=== PATIENT | male | born 1965 | race Caucasian/White ===

== ENCOUNTER 2022-05-07 19:59 | Emergency (ER) | payer BC, SELFPAY ==
[2022-05-07 20:21] VITALS: BP 122/79; PULSE 80; RESP 18; TEMP 36.7; O2SAT 94; BMI 33.9
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
--- NOTE | 2022-05-07 21:17 | ED_ITS ---
HPI - Extremity Problem General: Chief complaint: Extremity Injury, Lower Stated complaint: Left leg Swollen Time Seen by Provider: 05/07/22 20:46 Source: patient Mode of arrival: ambulatory Limitations: no limitations History of Present Illness: 56-year-old male states that he had a right hip replacement back in November he states he was diagnosed with a blood clot 2 months ago he is unsure if it was a DVT or an arterial clot from his history it sounds like possibly a DVT he is currently on Eliquis. He states he had some increased swelling in that leg and slight pain. Denies any difficulty walking denies any fever or redness. Associated symptoms: Deny chest pain, fever(s) or rash Review of Systems Const: Denies: fever(s), chills, body aches or change in appetite Eyes: Denies: blurry vision or eye discomfort ENMT: Denies: throat pain or dental pain Card: Denies: chest pain Resp: Denies: dyspnea GI: Denies: abdominal pain, nausea, vomiting or diarrhea : Denies: dysuria Musc: Reports: extremity swelling Skin/Breast: Denies: rash Neuro: Denies: headache(s) Psych: Denies: depression Nile/Lymph: Denies: easy bruising All/Imm: Denies: urticaria PFSH ED PFSH: Medical History (Updated 05/08/22 @ 00:20 by Manuelito Cardona MD) No pertinent past medical history Social History (Updated 05/07/22 @ 21:18 by Manuelito Cardona MD) Substance/Drug Use: never Physical Exam Const: COMMON NORMALS: no acute distress, patient oriented x3 and healthy appe [facility] HENMT: COMMON NORMALS: normocephalic and atraumatic HEAD & SCALP: normocephalic and atraumatic Eye: COMMON NORMALS: Equal, round and reactive pupils present and EOMs intact bilaterally PUPIL: Yes Equal, round and reactive pupils present Neck/C-Spine: COMMON NORMALS: full ROM and supple Chest: COMMONS NORMALS: normal inspection of the chest and normal palpation of entire chest wall Resp: COMMON NORMALS: normal respiratory effort, No retractions, No use of accessory muscles and clear to auscultation bilaterally AUSCULTATION: clear to auscultation bilaterally Cardio: COMMON NORMALS: regular rate, regular rhythm and No murmurs present (Cardio) RATE: regular rate RHYTHM: regular rhythm GI: COMMON NORMALS: Normal to inspection, nondistended, normoactive bowel sounds present, Soft to palpation, non-tender and no masses PALPATION: Yes Soft to palpation Extremity: COMMON NORMALS: full ROM NARRATIVE EXTREMITY EXAM: left leg swelling distal pulses intact Neuro: COMMON NORMALS: patient oriented x3, moves all extremities and no focal motor deficits Psych: COMMON NORMALS: mental status grossly normal, Normal thought process present and cooperative THOUGHT PROCESS: Normal thought process present Skin: COMMON NORMALS: no rashes or lesions noted and no wounds GENERAL SKIN EXAM: no rashes or lesions noted Course Vital Signs: Vital signs: Vital Signs Temperature 98.1 F 05/07/22 20:21 Pulse Rate 80 05/07/22 20:21 Respiratory Rate 18 05/07/22 20:21 Blood Pressure 122/79 05/07/22 20:21 Pulse Oximetry 94 05/07/22 20:21 Oxygen Delivery Me thod 05/07/22 20:21 MDM - Extremity (Nontraumatic) Medical Decision Making Patient presents here with acute on chronic DVT to his lower left leg we will increase his Eliquis to 10 mg twice daily for 1 week and then go back to 5 mg twice daily we will get him follow-up with oncology to have testing for hypercoagulable disorders. He has no signs of arterial occlusion he has no signs of PE he is stable for discharge she is to return if worsening he understands agrees to plan. Discharge Plan Discharge Patient Disposition: Home Clinical Impression: DVT (deep venous thrombosis) Discharge Orders: Discharge ED (Routine); Ordered 05/08/22 Ordered By: Manuelito Cardona Referrals: Reji Lacy MD [Hospitalist] - 1-3 days Discharge Diet: Advance as tolerated Discharge Activity: Resume usual activity Patient Instructions: Deep Vein Thrombosis (ED) Coding Level of Care Code ED Basket Hand Weaver for Chg Fwd Exam Comprehensive
--- NOTE | 2022-05-12 08:56 | DCPLANNER ---
Addendum entered by Kim Casillas 06/04/22 09:06: Patient had a follow up appointment scheduled with Dr. Lacy at oncology - patient did attend appointment. Addendum entered by Kim Casillas 05/15/22 11:33: Patient has a follow up appointment scheduled for , May 21, 2022 at 8:[address] Lacy. Clinic will call patient with appointment information. Original Note: agronomy manager had message to schedule a follow up appointment for patient with Dr. Lacy. agronomy manager called Destinee Be[facility], [facility], hospice bereavement coordinator. Patients information will be printed and reviewed. Clinic will call patient with appointment information.
== END 2022-05-08 00:50 | disposition home or self-care (01) ==
PROVIDERS: Emergency Provider Emergency Medicine
DX: I82.402 Acute embolism and thrombosis of unspecified deep veins of left lower extremity (principal)
CPT/HCPCS: 93926; 93971; 99284

== ENCOUNTER → 2022-07-14 10:05 | Outpatient (BNVA) | payer BC, SELFPAY | PROVIDERS: Visit Provider Podiatrist Foot & Ankle Surgery | DX: S90.212A Contusion of left great toe with damage to nail, initial encounter (principal); V89.2XXA Person injured in unspecified motor-vehicle accident, traffic, initial encounter; I82.402 Acute embolism and thrombosis of unspecified deep veins of left lower extremity; M21.372 Foot drop, left foot | CPT/HCPCS: 73630 ==

== ENCOUNTER 2022-07-28 11:58 | Oncology outpatient (recurring) (ONCR) | payer BC, SELFPAY ==
--- NOTE | 2022-07-28 12:30 | USCV_ITS ---
Jose Maynard Age: 57 Gender: M : 1965 Exam Date: 07/28/2022 12:16 Ordering Phys: Reji Lacy MD Technologist: MINI Exam Location: [facility] [place] Indication: BLE SWELLING HISTORY: Lower extremity swelling. PROCEDURES: Venous duplex imaging was performed in bilateral lower extremities. The following venous structures were evaluated: common femoral vein, profunda vein, proximal portion of the greater saphenous vein, superficial femoral vein, and the popliteal vein. In addition, the posterior tibial and peroneal trunk were evaluated. Serial compression, augmentation maneuvers, and spectral Doppler flow evaluation were performed. FINDINGS: + DVT Seen in Left femoral vein at distal and into Pop V. All other veins appear patent CONCLUSIONS DVT left femoral vein distally extending into popliteal vein Remainder of veins are patent. Comparison from 05/07/22 retrieved DVT is essentially unchanged since that study. No new or progressive DVT D/w Dr Regino Guzman MD (Electronically Signed) Final Date: 28 July 2022 16:04 Amended: 29 July 2022 13:39 C
== END 2022-07-28 23:59 | disposition home or self-care (01) ==
LOC: RAD 12:04 → ONCMED 08-19 07:33
PROVIDERS: Visit Provider Internal Medicine Medical Oncology
DX: I82.409 Acute embolism and thrombosis of unspecified deep veins of unspecified lower extremity (principal)
CPT/HCPCS: 93970

== ENCOUNTER 2022-11-27 07:31 | Outpatient (CLI) | payer BC, SELFPAY ==
--- NOTE | 2022-11-27 07:45 | USCV_ITS ---
Jose Maynard Age: 57 Gender: M : 1965 Exam Date: 11/27/2022 07:39 Ordering Phys: Jaimee Billings NP Technologist: CT Exam Location: [facility] [place]_ Indication: swelling PROCEDURES: The venous duplex Doppler examination of both lower extremities was performed in the standard fashion. The following venous structures were evaluated: common femoral vein, profunda vein, proximal portion of the greater saphenous vein, superficial femoral vein, and the popliteal vein. Bilaterally, the common femoral, superficial femoral, profunda femoral, popliteal, posterior tibial, greater saphenous veins, and the peroneal trunk were identified and interrogated in the standard fashion. FINDINGS: hx of left dvt, dst thigh to pop v...... pt on blood thinners, thrombus is still evident but is non occluding and probably chronic at this point. CONCLUSIONS Persistent non occlusive chronic thrombus LLE involving distal femoral, popliteal, and calf veins No evidence of right lower extremity DVT. comp 05/07/22 Jose Angel Guzman MD (Electronically Signed) Final Date: 27 November 2022 08:43 S
== END 2022-11-27 07:32 | disposition home or self-care (01) ==
LOC: RAD 07:33
PROVIDERS: PCP Nurse Practitioner Family; Visit Provider Nurse Practitioner
DX: M79.89 Other specified soft tissue disorders (principal); I82.512 Chronic embolism and thrombosis of left femoral vein; I82.532 Chronic embolism and thrombosis of left popliteal vein; I82.5Z2 Chronic embolism and thrombosis of unspecified deep veins of left distal lower extremity
CPT/HCPCS: 93970

== ENCOUNTER 2023-01-26 13:52 | Oncology outpatient (recurring) (ONCR) | payer BC, SELFPAY | END 2023-02-17 23:59 | disposition home or self-care (01) | PROVIDERS: PCP Nurse Practitioner Family; Visit Provider Internal Medicine Medical Oncology | DX: Z53.9 Procedure and treatment not carried out, unspecified reason (principal) ==

== ENCOUNTER 2024-05-04 11:11 | Emergency (ER) | payer BC, SELFPAY ==
--- NOTE | 2024-05-04 11:13 | XR_ITS ---
WS: [id number] Examination: XR chest 1V portable [id number] Reason for Exam: fever Date: May 04, 2024 Comparison: None. Findings: The heart is not enlarged. The mediastinum is not widened. There is no pleural effusion or dense consolidation. No congestion or failure is identified. XR/XR chest 1V portable [id number] Impression: No acute lung process is seen.
[2024-05-04 11:15] VITALS: BP 145/98; PULSE 90; RESP 18; TEMP 36.7; O2SAT 93
[2024-05-04] MEDS: sodium chloride 0.9% 1,000 ML 999 ML IV (11:30)
[2024-05-04] MEDS: ondansetron 2 mg/ML SDV 2 mL 4 MG IVP (11:36)
--- NOTE | 2024-05-04 11:38 | CT_ITS ---
WS: [id number] CT ABDOMEN PELVIS TECHNIQUE: Contrast-enhanced CT of the abdomen and pelvis with coronal and sagittal reformatted image s. CLINICAL INFORMATION: vomiting COMPARISON: None. DLP: 994.[address] scans at [facility] use at least one of these dose optimization techniques: automated e xposure control; mA and/or kV adjustment per patient size (includes targeted exams where dose is matc hed to clinical indication); or iterative reconstruction. FINDINGS: Focal fatty infiltration at the falciform ligament. Liver is otherwise normal in appearance. Normal p ortal vein and splenic vein. Prior postoperative changes stomach may represent gastric bypass. Mild f luid distention of the gallbladder. No pericholecystic fluid. Normal spleen. 4 mm noncalcified nodule RIGHT middle lobe. Subsegmental atelectasis in the lung bases . Fatty atrophy of the pancreas. Normal caliber abdominal aorta. Celiac and SMA are patent. Adrenal g lands are normal. Lobulation of both kidneys. No hydronephrosis. Small LEFT renal cyst. Sigmoid diverticulosis. No evidence of acute diverticulitis. Normal appendix in the RIGHT lower quadr ant. Tiny fat-containing umbilical hernia. Tiny fat-containing LEFT greater than RIGHT inguinal herni as. Images degraded in the pelvis due to hardware artifact from prior LEFT hip pubic rami and sacroil iac instrumentation. CT/CT abdomen pelvis w con* [id number] IMPRESSION: 1. No acute findings in the abdomen or pelvis. 2. Prior postoperative changes involving the stomach may be due to gastric byp ass. 3. No evidence of small or large bowel obstruction. 4. Sigmoid diverticulosis. No evidence of acute diverticulitis. 5. Mild fluid distention of the gallbladder. This can be followed up with ultr asound if clinical concern. 6. Small LEFT renal cyst. 7. 4 mm noncalcified nodule RIGHT middle lobe. Recommend follow-up chest CT in 6 months. 8. No other acute findings.
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
[2024-05-04 12:02] LABS: SARS Covid-2 Antigen negative (Negative)
[2024-05-04] MEDS: diphenhydrAMINE 50 mg/mL SDV 1mL IVP (12:04)
[2024-05-04] MEDS: methylPREDNISolone sod succ 40 mg/mL INJ IVP (12:04)
[2024-05-04 12:14] LABS: Basophils % 0.4 %; Eosinophils # 0.1 10^3/uL (0.0-0.8); Eosinophils % 2.3 %; Hematocrit 47.8 % (37-53); Lymphocytes # 0.8 10^3/uL (0.8-4.8); Lymphocytes % 15.8 %; Mean Corpuscular HGB Conc 32.8 g/dL (30-55); Mean Corpuscular Hemoglobin 26.4 pg (27-33); Mean Corpuscular Volume 80.3 fl (82-101); Mean Platelet Volume 10.5 fL (7.4-10.4); Monocytes # 0.5 10^3/uL (0.2-0.9); Monocytes % 10.3 %; Neutrophils # 3.71 10^3/uL (1.8-7.7); Neutrophils % 70.6 %; Nucleated Red Blood Cells % 0 %; Platelet Count 233 10^3/cmm (157-399); Red Blood Count 5.95 10^6/uL (3.85-5.65); Red Cell Distribution Width 19.8 % (12.1-15.1); White Blood Count 5.25 10^3/uL (3.29-11.43)
[2024-05-04] MEDS: iohexol 350 mg/mL 500 mL Btl (per mL) IV (12:16)
[2024-05-04 12:31] VITALS: BP 152/92; PULSE 75; O2SAT 95
[2024-05-04 12:37] LABS: Alanine Aminotransferase 15 U/L (0-41); Albumin Level 3.8 g/dL (3.5-5.2); Alkaline Phosphatase 67 U/L (40-130); Aspartate Amino Transferase 20 U/L (0-40); Blood Urea Nitrogen 13 mg/dL (6-20); Calcium 8.4 mg/dL (8.5-10.5); Carbon Dioxide 25 mmol/L (22-29); Chloride 96 mmol/L (98-107); Creatinine Clr Calc Pharmacy 90.4725; Globulin 2.5 g/dL (1.3-4.6); Glomerular Filtration Rate 68.8 mL/min (90-130); Glucose 102 mg/dL (65-115); Lipase 16 U/L (13-60); Osmolality Calculated 288 mOsm/kg (285-295); Sodium 139 mmol/L (136-145); Total Bilirubin 0.7 mg/dL (0.15-1.2); Total Protein 6.3 g/dL (6.6-8.7)
[2024-05-04 13:30] VITALS: BP 164/109; PULSE 71; O2SAT 92
[2024-05-04 13:47] VITALS: BP 151/98; PULSE 69; RESP 17; O2SAT 94
== END 2024-05-04 13:48 | disposition home or self-care (01) ==
PROVIDERS: Emergency Provider Emergency Medicine; PCP Nurse Practitioner Family
DX: R11.2 Nausea with vomiting, unspecified (principal); Z11.52 Encounter for screening for COVID-19
CPT/HCPCS: 36415; 71045; 74177; 80053; 83690; 85025; 87426; 96374; 96375; 99285; J1200; J2405; J2919; J7030; Q9967

== ENCOUNTER 2024-05-08 16:00 | Emergency (ER) | payer BC, SELFPAY ==
[2024-05-08] VITALS (7 sets, daily range): BP systolic 138–172; BP diastolic 76–105; PULSE 66–91; TEMP 36.6; O2SAT 94–96; BMI 29.8
[2024-05-08 16:24] LABS: Basophils % 0.6 %; Eosinophils # 0.1 10^3/uL (0.0-0.8); Eosinophils % 1.4 %; Hematocrit 52.7 % (37-53); Lymphocytes # 1.1 10^3/uL (0.8-4.8); Mean Corpuscular HGB Conc 33.4 g/dL (30-55); Mean Platelet Volume 10.5 fL (7.4-10.4); Monocytes # 0.5 10^3/uL (0.2-0.9); Monocytes % 6.5 %; Neutrophils # 5.36 10^3/uL (1.8-7.7); Neutrophils % 76.1 %; Nucleated Red Blood Cells % 0 %; Platelet Count 310 10^3/cmm (157-399); Red Blood Count 6.76 10^6/uL (3.85-5.65); Red Cell Distribution Width 19.7 % (12.1-15.1); White Blood Count 7.05 10^3/uL (3.29-11.43)
[2024-05-08 16:43] LABS: Alanine Aminotransferase 11 U/L (0-41); Albumin Level 4.1 g/dL (3.5-5.2); Alkaline Phosphatase 79 U/L (40-130); Anion Gap 23.8 (5-19); Aspartate Amino Transferase 21 U/L (0-40); Blood Urea Nitrogen 14 mg/dL (6-20); Calcium 9.1 mg/dL (8.5-10.5); Carbon Dioxide 21 mmol/L (22-29); Chloride 96 mmol/L (98-107); Creatinine Clr Calc Pharmacy 89.5332; Globulin 3.2 g/dL (1.3-4.6); Glomerular Filtration Rate 68.8 mL/min (90-130); Glucose 113 mg/dL (65-115); Lipase 18 U/L (13-60); Osmolality Calculated 285 mOsm/kg (285-295); Potassium 3.8 mmol/L (3.5-5.1); Sodium 137 mmol/L (136-145); Total Bilirubin 0.7 mg/dL (0.15-1.2); Total Protein 7.3 g/dL (6.6-8.7)
--- NOTE | 2024-05-08 16:43 | USR_ITS ---
PROCEDURE INFORMATION: Exam: US Abdomen, Limited; Right Upper Quadrant Exam date and time: 05/08/2024 5:00 PM Age: 58 years old Clinical indication: Abdominal pain; Generalized; Prior surgery; Surgery date: 1-6 months; Surgery type: Gastric bypass; Additional info: Food related abd pain TECHNIQUE: Imaging protocol: Real time ultrasound of the abdomen with image documentation. Limited exam focused on the right upper quadrant. COMPARISON: CT abdomen pelvis w con* [id number] 05/04/2024 12:13 PM FINDINGS: Liver: Normal. No masses. Right hepatic lobe measures 14.9 cm. Gallbladder: Mildly distended. No gallstones. There is no gallbladder wall thickening. Biliary ducts: Normal. No stones. No dilation. Common bile duct measures 0.4 cm in caliber. Pancreas: Visualized pancreas is unremarkable. Right kidney: Normal. No mass. No hydronephrosis. Right kidney measures 9.9 cm in length. Aorta: The distal aorta measures 1.6 cm in caliber. Inferior vena cava: IVC not clearly visualized. US/US gall bladder [id number] IMPRESSION: 1. Mildly distended gallbladder, nonspecific. No sonographic evidence of acute cholecystitis. 2. No acute findings in the visualized abdomen.
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
[2024-05-08 16:57] LABS: Magnesium 1.8 mg/dL (1.7-2.3)
[2024-05-08] MEDS: lactated ringers 1,000 ML 999 ML IV (17:27)
--- NOTE | 2024-05-09 10:47 | DCPLANNER ---
Message sent to Gen surg for EGD for patient - needs in 2 weeks.
--- NOTE | 2024-05-09 15:57 | DCPLANNER ---
Family called and requested referral for GI to be sent to [place]- Request from PCP was sent over as well- Referral has been faxed to [facility]
== END 2024-05-08 18:55 | disposition home or self-care (01) ==
PROVIDERS: Emergency Medicine; Emergency Provider Emergency Medicine; PCP Nurse Practitioner Family
DX: R68.81 Early satiety (principal)
CPT/HCPCS: 36415; 76705; 80053; 83690; 83735; 85025; 96360; 99284; J7120

== ENCOUNTER 2025-06-12 17:26 | Emergency (ER) | payer SELFPAY ==
--- OUTSIDE RECORDS SUMMARY | 2024-06-30 05:00 | XMS_ITS ---
Author Organization [facility] Address [address] [place] [address] Care Team Providers Care Home Theater Specialist Name Role Phone Smita Millan APRN Primary Care Provider Unavail Abhijeet Garza Unavailable [phone] Kath Curiel [phone] Encounters Encounter Location Date Provider Diagnosis [facility] [address] [place] [address], [place] [address] 06/30/2024 Kath Curiel Plan Of Treatment Next Appt Details Provider Name:Abhijeet Hayes , 07/02/2025 10:00:00 AM, [address] [place] [address], [place], [address], Progress Notes * Jose MAYNARDDOB:1965 (59 yo M)Acc No.[id number]:06/30/2024 Patient: Jose Shah Provider: Reggie Curiel APN :1965 A ge:59 Y S ex:Male Date:06/30/2024 Address: [address], [id number] Pcp:Smita Millan APRN Check In:10:22 AM CSTCheck O ut:11:00 AM CARGO TRIMMER Billing Information: * Procedure Codes: * Electronic signature of Ferdinand Curiel APN on 06/12/2025 at 05:31 PM CDT Sign off status: Pending * Provider: Reggie Curiel APN Date: 1 Generated for Gallo gaona/Gene/eTransmitting on: 0 06/12/2025 05:31 PM CDT
--- OUTSIDE RECORDS SUMMARY | 2024-07-15 04:00 | XMS_ITS ---
Author Organization [facility] Address [address] [facility] [place] [place] [address] Care Team Providers Care Mortgage Loan Processor Name Role Phone Smita Millan APRN Primary Care Provider Unavail able Abhijeet Hayes Unavailable [phone] Migration, Provider Unavailable Unavailable REASON FOR VISIT EMR-Mario Encounters Encounter Location Date Provider Diagnosis Migrated_Facility 0 0 07/15/2024 Provider Migration Plan Of Treatment Next Appt Details Provider Name:Abhijeet Hayes , 07/02/2025 10:00:00 AM, [address] [facility] [place], [address], Progress Notes * Jose MAYNARDDOB:1965 (59 yo M)Acc No.[id number]:07/15/2024 Patient: Jose TOBIN :1965 A ge:59 Y S ex:Male Address: [place] [address] Subjective: * Chief Complaints: * E MR-Mario * * Date:
--- OUTSIDE RECORDS SUMMARY | 2024-07-16 04:00 | XMS_ITS ---
Author Organization [facility] Address [address] [facility] [place] [address] Care Team Providers Care Senior Test Engineer Name Role Phone Smita Millan APRN Primary Care Provider Unavail able Abhijeet Hayes Unavailable [phone] Migration, Provider Unavailable Unavailable Allergies Allergen (clinical drug ingredient) Drug/Non Drug Allergy documented on EMR Reaction Allergy Type Onset Date Status Intravenous contrast (uncoded) Rash Allergy Active Iodinated contrast media (substance) Iodinated Diagnostic Agents Unknown Drug Allergy 07/28/2022 active losartan Losartan cough Drug Allergy Active REASON FOR VISIT EMR-Mario Social History Social History Additional Details Category Social Info Options Details Migrated Social History Migrated Social History Alcoholic beverages? - No, Currently on disability? - Yes, Drug or substance abuse? - No, exposure to toxins/poisonous substances at work - No, Involved in any legal proceedings or lawsuits? - No, Marital Status - , Nonprescription drug use? - No, Participation in detoxification or rehabilitation - No, Smoking - No, Working currently? - No Encounters Encounter Location Date Provider Diagnosis Migrated_Facility 0 0 07/16/2024 Provider Migration Plan Of Treatment Next Appt Details Provider Name:Abhijeet Hayes , 07/02/2025 10:00:00 AM, [address] [facility] [place], [address], Progress Notes * Jose MAYNARDDOB:1965 (59 yo M)Acc No.[id number]:07/16/2024 Patient: Jacki PALENCIA Jose :1965 A ge:59 Y S ex:Male Address:[place] [address], [place] [address] Subjective: * Chief Complaints: * E MRJefry * Medical History: Depression, H igh blood pressure, * Surgical History: bilateral Hernia repair Bladder surgery Hip replacement surgery * Family History: M igrated Family History: : Cancer, H eart disease. * Social History: M igrated Social History: M igrated Social History: Alcoholic beverages? - No, C urrently on disability? - Yes, D rug or substance abuse? - No, e xposure to toxins/poisonous substances at work - No, I nvolved in any legal proceedings or lawsuits? - No, M arital Status - , N onprescription drug use? - No, P articipation in detoxification or rehabilitation - No, S moking - No, W orking currently? - No. * Allergies: I ntravenous contrast: Rash - AllergyIodinated Diagnostic Agents: Allergy - Onset Date 07/28/2022Losartan: cough - Allergy * * Date:
--- OUTSIDE RECORDS SUMMARY | 2024-10-11 08:00 | XMS_ITS ---
Author Organization [facility] Address [address] [place] [address] Care Team Providers Care Vb Net Developer Name Role Phone Smita Millan APRN Primary Care Provider Abhijeet Hodgson [phone] Encounters Encounter Location Date Provider Diagnosis [facility] [address] [place] [address], [place] [address] 10/11/2024 Abhijeet Hayes Plan Of Treatment Next Appt Details Provider Name:Abhijeet Livanjuan , 07/02/2025 10:00:00 AM, [address] [place] [address], [place], [address], Progress Notes * Jose MAYNARDDOB:1965 (59 yo M)Acc No.[id number]:10/11/2024 Patient: Jose Shah Provider: John Hayes MD :1965 A ge:59 Y S ex:Male Date:10/11/2024 Address: [address], [id number] Pcp:Smita Millan APRN Check In:01:02 PM CSTChesandoval O ut:01:22 PM NAPPER FIXER Billing Information: * Procedure Codes: * Electronic signature of Donal Hayes MD on 06/12/2025 at 05:31 PM CDT Sign off status: Pending * Provider: John Hayes MD Date: 0 10/11/2024 Generated for Printi ng/Fatishg/eTransmitting on: 0 06/12/2025 05:31 PM CDT
--- OUTSIDE RECORDS SUMMARY | 2025-06-12 17:31 | XMS_ITS | Patient Health Record ---
Author Organization [facility], [facility] Address [address] [place] [address] Care Team Providers Care Finishing Department Supervisor Name Role Phone Smita Millan Primary Care Provider JAVAD Quarles Unavailable [phone] Javad Tsai Unavailable [phone] Allergies Allergen (clinical drug ingredient) Drug/Non Drug Allergy documented on EMR Reaction Allergy Type Onset Date Status Iodinated contrast media (substance) Iodinated Diagnostic Agents Unknown Drug Allergy Active Results Component Value Reference Range Notes Urinalysis, Routine Reviewed date:07/20/2024 02:22:40 PM Interpretation: Performing Lab: Notes/Report: Urine-Color yellow Appearance clear Glucose - Bilirubin 1+ Ketones - Specific [place] 1.020 Occult Blood - pH 6.0 Urine Protein trace Urobilinogen,Semi-Qn - Nitrite, Urine - WBC Esterase 1+ Urinalysis, Routine Reviewed date:01/16/2025 02:41:05 PM Interpretation: Performing Lab: Notes/Report: Urine-Color yellow Appearance cloudy Glucose - Bilirubin - Ketones - Specific [place] 1.020 Occult Blood trace pH 6.0 Urine Protein - Urobilinogen,Semi-Qn - Nitrite, Urine - WBC Esterase - Estradiol Level Reviewed date:01/16/2025 10:30:30 AM Interpretation: Performing Lab: Notes/Report: Males < 0-52 Follicular Phase 11-165 Midcycle 146-526 Luteal Phase 33-133 Postmenopausal Female < 0-37 Test performed with Siemens Estradiol reagent assay. Siemens has confirmed the drug fulvestrant (Faslodex) may cause falsely elevated estradiol results when performed with this assay method. Fulvestrant (Faslodex) is an estrogen receptor antagonist which is used in the treatment of stage IV recurrent breast cancer in post- menopausal women with estrogen receptor positive breast cancer. Fulvestrant is used when other anti-estrogen drugs have failed. Fulvestrant has a similar chemical structure to estradiol and may cross-react with antibodies used in immunoassays. Testing performed at: [address] [place] [address] CLIA ID [id number] Estradiol 26 Testosterone Total Reviewed date:01/16/2025 10:30:30 AM Interpretation: Performing Lab: Notes/Report: Testoster Tot 309.02 87.00-780.00 NG/DL Performed on the Definition 6 IM Analyzer Testing performed at: [address] [place] [address] CLIA ID [id number] PSA-Diagnostic Reviewed date:01/16/2025 10:30:30 AM Interpretation: Performing Lab: Notes/Report: PSA .92 .00-4.00 NG/ML PSA concentrations, regardless of the value, should not be interpreted as definitive evidence for the presence or absence of prostate cancer. Testing performed at: [address] [place] [address] CLIA ID [id number] Order Activation Reviewed date:01/16/2025 10:30:30 AM Interpretation: Performing Lab: Notes/Report: Order Activation Complete Testing per formed at: [address] [place] [address] CLIA ID [id number] Estradiol Level Reviewed date:04/17/2025 11:39:03 AM Interpretation: Performing Lab: Notes/Report: Males < 0-52 Follicular Phase 11-165 Midcycle 146-526 Luteal Phase 33-133 Postmenopausal Female < 0-37 Test performed with Siemens Estradiol reagent assay. Siemens has confirmed the drug fulvestrant (Faslodex) may cause falsely elevated estradiol results when performed with this assay method. Fulvestrant (Faslodex) is an estrogen receptor antagonist which is used in the treatment of stage IV recurrent breast cancer in post- menopausal women with estrogen receptor positive breast cancer. Fulvestrant is used when other anti-estrogen drugs have failed. Fulvestrant has a similar chemical structure to estradiol and may cross-react with antibodies used in immunoassays. Testing performed at: [address] [place] [address] CLIA ID [id number] Estradiol 44 Hematocrit Reviewed date:04/17/2025 11:39:03 AM Interpretation: Performing Lab: Notes/Report: Hct 45.6 41.0-53.0 % Testing perform ed at: [address] [place] [address] CLIA ID [id number] Testosterone Bio & SHBG Adul t Male Reviewed date:04/20/2025 03:52:30 PM Interpretation: Performing Lab: Notes/Report: Testosterone Level 298 300-890 INTERPRETIVE INFORMATION: Testosterone by Immunoassay Testosterone immunoassays are both imprecise and inaccurate at low testosterone concentrations, such as those found in children and cisgender females. For these individuals, testing by mass spectrometry is recommended; refer to Testosterone (Adult Females, Children, or Individuals on Testosterone-Suppressing Hormone Therapy) ([employer] test code 8706817). Free or bioavailable testosterone measurements may provide supportive information. For individuals on testosterone hormone therapy, refer to cisgender male reference intervals. No reference intervals have been established for males younger than 14 years or for cisgender females. For a complete set of all established reference intervals, refer to [employer]/Tests/Pub/007 0130. Sex Hormone Binding Globulin 45 19-76 nmol/L REFERENCE INTERVAL: Sex Hormone Binding Globulin Access complete set of age- and/or gender-specific reference intervals for this test in the [employer] Test Directory ([employer]). Testosterone Bioavailable 127 131-682 INTERPRETIVE INFORMATION: Testosterone, Bioavailable Bioavailable testosterone concentration is calculated using total testosterone (measured by immunoassay) and the binding constant of testosterone and sex hormone-binding globulin (SHBG) and/or albumin. Testosterone immunoassays are both imprecise and inaccurate at low testosterone concentrations, such as those found in children and cisgender females. For these individuals, testing by mass spectrometry is recommended; refer to Testosterone, Bioavailable and Total, Includes Sex Hormone-Binding Globulin (Adult Females, Children, or Individuals on Testosterone-Suppressing Hormone Therapy) ([employer] test code 8621456). For individuals on testosterone hormone therapy, refer to cisgender male reference intervals. No reference intervals have been established for males younger than 14 years or for cisgender females. For a complete set of all established reference intervals, refer to [email or web address]/Tests/Pub/007 0102. Testosterone Free 44 47-244 pg/mL INTERPRETIVE INFORMATION: Testosterone, Free Calculation Free testosterone concentration is calculated using total testosterone (measured by immunoassay) and the binding constant of testosterone and sex hormone-binding globulin (SHBG). Testosterone immunoassays are both imprecise and inaccurate at low testosterone concentrations, such as those found in children and cisgender females. For these individuals, testing by mass spectrometry is recommended; refer to Testosterone, Free (Adult Females, Children, or Individuals on Testosterone-Suppressing Hormone Therapy) ([employer] test code 5362083). For individuals on testosterone hormone therapy, refer to cisgender male reference intervals. No reference intervals have been established for males younger than 14 years or for cisgender females. For a complete set of all established reference intervals, refer to [email or web address]/Pub/007 0109. % Free Testosterone 1.5 1.6-2.9 % Performed By: [facility] [address] [place] [address] Machine Filler: Je Wilkinson MD, PhD CLIA Number: [id number] Testing performed at: [place] [address] CLIA ID [id number] Reason For Referral No Information Medications Medication SIG (Take, Route, Frequency, Duration) Notes Start Date End Date Status Multiple Vitamin Act joselito Cinnamon Not-Taking Magnesium Active Turmeric Not-Taking [place] 3 Active hydroCHLOROthiazide Not-Taking Calcium Active Ashwagandha Not-Ernie gaona Cefaclor ER 500 MG as directed Orally Not-Taking Losartan Potassium 25 MG 1 tablet Orally Once a day Active Eliquis 2.5 MG as directed Orally Not-Taking Omeprazole 20 MG 1 capsule 30 minutes before morning meal Orally twice a day Not-Taking Testosterone Cypionate 200 MG/ML 0.5 mL Intramuscular every 7 days; Duration: 90 days 01/11/2024 Not-Taking Metoprolol Succinate ER 100 MG 1/2 tablet Orally Once a day Not-Taking Testosterone Cypionate 200 MG/ML 0.5 mL Intramuscular [id number]; Duration: 30 days 01/17/2025 Not-Taking Losartan Potassium N ot-Taking Glucosamine Not-Ernie gaona Social History Tobacco Use: Social History Observation Description Date Details (start date - stop date) Never Smoker NA - NA Tobacco Use/Smoking Question Answer Notes Tobacco use: nonsmoker Problems Problem Type SNOMED Code ICD Code Onset Dates Problem Status W/U Status Risk Notes Problem Total urinary incontinence (822157018) Continuous leakage (N39.45) Active confirmed Problem Cystitis (66679411) Inflammation of bladder (N30.90) Active confirmed Problem Male hypogonadism (18235651) Hypogonadism in male (E29.1) Active confirmed Problem Lower urinary tract symptoms (966901681) Lower urinary tract symptoms (LUTS) (R39.9) Active confirmed Problem Hematuria (43248082) Hematuria (R31.9) Active confirmed Problem Male hypogonadism (62872079) Hypogonadism male (E29.1) Active confirmed Problem 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 confirmed Problem Overactive urinary bladder (disorder) (901093706) OAB (overactive bladder) (N32.81) Active confirmed Problem Bladder mass (233611439) Bladder mass (N32.89) Active confirmed Vital Signs Heart Rate 75 /min 04/17/2025 Height-cm 182.88 cm 04/17/2025 Blood pressure diastolic 73 mm Hg 04/17/2025 Weight-kg 83.46 kg 04/17/2025 Height 72 in 04/17/2025 Blood pressure systolic 127 mm Hg 04/17/2025 Weight 184 lbs 04/17/2025 BMI 24.95 kg/m2 04/17/2025 Procedures Procedure Date Ordered Date Performed Result Body Sit e Bladder Scan 01/16/2025 01/16/2025 31ml Encounters Encounter Location Date Provider Diagnosis [facility] [employer] [address] [place] [address] 07/20/2024 JAVAD CORDOVA Hematuria R31.9 ; Inflammation of bladder N30.90 ; Nocturia R35.1 ; Long-term current use of testosterone cypionate Z79.890 and Hypogonadism in male E29.1 [facility] [address] [place] [address] 01/16/2025 JAVAD CORDOVA Hematuria R31.9 ; Hypogonadism in male E29.1 ; Inflammation of bladder N30.90 ; Nocturia R35.1 and Long-term current use of testosterone cypionate Z79.890 [facility] [address] [place] [address] 04/17/2025 Javad Tsai Hematuria R31.9 ; Hypogonadism in male E29.1 ; Inflammation of bladder N30.90 ; Nocturia R35.1 and Long-term current use of testosterone cypionate Z79.890 [facility] [address] [place] [address] 06/19/2024 JAVAD CORDOVA Hypogonadism male E29.1 [facility] [address] [place] [address] 11/02/2024 JAVAD CORDOVA Hypogonadism male E29.1 and Hematuria R31.9 [facility] [address] [place] [address] 03/07/2025 JAVAD CORDOVA Hypogonadism male E29.1 [facility] [address] [place] [address] 04/23/2025 Javad Tsai Assessments Encounter Date Diagnosis (ICD Code) Assessment Notes Treatment Notes Treatment Clinical Notes Section Notes 07/20/2024 Inflammation of bladder (ICD-10 - N30.90) Labs on 07/17/24 TT 867.9, Estr 76 Pt declines cystoscopy today. We discussed his rapid weight loss and potential for stone formation. Pt reports he has been taking various supplements and reports he has difficulty with hydration. Pt educated on importance of aggressive hydration. Pt is currently on TRT regimine, he is not taking arimidex. His Estr is WNL today. We did discuss potentially adding DIM as an estrogen britany as opposed to going back to Arimidex. Pt reports some frequency and nocturia Q 2-3 hours. He believes this is in relation to his vitamin consumption. We did discuss potential for trialing a medication for OAB if he continues with symptoms, despite change in diet, lifestyle and vitamin consumption. I will plan for pt to return in 6 mos with PSA, HCT, TT Estr, or sooner with concerns. IJerri LPN am scribing for and in the presence of Javad Cordova MD. I, Javad Cordova MD, attest that I have personally performed the services scribed in this documentation and it is both accurate and complete. 07/20/2024 Hematuria (ICD-10 - R31.9) Labs on 07/17/24 TT 867.9, Estr 76 Pt declines cystoscopy today. We discussed his rapid weight loss and potential for stone formation. Pt reports he has been taking various supplements and reports he has difficulty with hydration. Pt educated on importance of aggressive hydration. Pt is currently on TRT regimine, he is not taking arimidex. His Estr is WNL today. We did discuss potentially adding DIM as an estrogen britany as opposed to going back to Arimidex. Pt reports some frequency and nocturia Q 2-3 hours. He believes this is in relation to his vitamin consumption. We did discuss potential for trialing a medication for OAB if he continues with symptoms, despite change in diet, lifestyle and vitamin consumption. I will plan for pt to return in 6 mos with PSA, HCT, TT Estr, or sooner with concerns. IJerri LPN am scribing for and in the presence of Javad Cordova MD. I, Javad Cordova MD, attest that I have personally performed the services scribed in this documentation and it is both accurate and complete. 11/02/2024 Hypogonadism male (ICD-10 - E29.1) 03/07/2025 Hypogonadism male (ICD-10 - E29.1) 04/17/2025 Hematuria (ICD-10 - R31.9) He has been off testosterone for several months but would like to consider restarting. Symptomatically he has low libido and low energy with declining muscle mass and we have discussed treatment thresholds and targets. He would like to go back to injection therapy and will start a every 10 day half cc of 200 mg/cc concentration. 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 Side effects extensively reviewed and he will return in 3 months for check of safety labs. Denies bothersome LUTS. For now, and through shared decision making we are in agreement with no further workup or intervention at this time with care plan, aside from what was mentioned. Patient has no other voiced concerns or questions. Patient satisfied with plan. 01/16/2025 Hypogonadism in male (ICD-10 - E29.1) Labs on 01/12/25 PSA 0.92 TT 309.02 Est 26. We discussed TRT treatment options to include topicals, injectables, pellets, and orals. Pros and cons of each modality reviewed. We also reviewed risks associated with TRT replacement, including cardiovascula r risks. TRT and was restarted on 200mg/ml, 0.5ml Q10 days. Rx sent today. He will return in 3m with safety labs, TT, SHGB, Estr, HCT. Return sooner with any concerns He has had over 100 pound weight loss and feels much better symptomatically and has been off testosterone for several months but would like to consider restarting it with a baseline testosterone below 300. Symptomatically he has low libido and low energy with declining muscle mass and we have discussed treatment thresholds and targets. He would like to go back to injection therapy and will start a every 10 day half cc of 200 mg/cc concentration. Side effects extensively reviewed and he will return in 3 months for check of safety labs including SHBG, hematocrit, testosterone, and estradiol. PSA has been stable on testosterone therapy. He denies any further urinary difficulties and has deferred follow-up cystoscopy. 01/16/2025 Hematuria (ICD-10 - R31.9) He has had over 100 pound weight loss and feels much better symptomatically and has been off testosterone for several months but would like to consider restarting it with a baseline testosterone below 300. Symptomatically he has low libido and low energy with declining muscle mass and we have discussed treatment thresholds and targets. He would like to go back to injection therapy and will start a every 10 day half cc of 200 mg/cc concentration. Side effects extensively reviewed and he will return in 3 months for check of safety labs including SHBG, hematocrit, testosterone, and estradiol. PSA has been stable on testosterone therapy. He denies any further urinary difficulties and has deferred follow-up cystoscopy. 06/19/2024 Hypogonadism male (ICD-10 - E29.1) 01/16/2025 Inflammation of bladder (ICD-10 - N30.90) He has had over 100 pound weight loss and feels much better symptomatically and has been off testosterone for several months but would like to consider restarting it with a baseline testosterone below 300. Symptomatically he has low libido and low energy with declining muscle mass and we have discussed treatment thresholds and targets. He would like to go back to injection therapy and will start a every 10 day half cc of 200 mg/cc concentration. Side effects extensively reviewed and he will return in 3 months for check of safety labs including SHBG, hematocrit, testosterone, and estradiol. PSA has been stable on testosterone therapy. He denies any further urinary difficulties and has deferred follow-up cystoscopy. 04/17/2025 Hypogonadism in male (ICD-10 - E29.1) He has been off testosterone for several months but would like to consider restarting. Symptomatically he has low libido and low energy with declining muscle mass and we have discussed treatment thresholds and targets. He would like to go back to injection therapy and will start a every 10 day half cc of 200 mg/cc concentration. 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 Side effects extensively reviewed and he will return in 3 months for check of safety labs. Denies bothersome LUTS. For now, and through shared decision making we are in agreement with no further workup or intervention at this time with care plan, aside from what was mentioned. Patient has no other voiced concerns or questions. Patient satisfied with plan. 07/20/2024 Nocturia (ICD-10 - R35.1) Labs on 07/17/24 TT 867.9, Estr 76 Pt declines cystoscopy today. We discussed his rapid weight loss and potential for stone formation. Pt reports he has been taking various supplements and reports he has difficulty with hydration. Pt educated on importance of aggressive hydration. Pt is currently on TRT regimine, he is not taking arimidex. His Estr is WNL today. We did discuss potentially adding DIM as an estrogen britany as opposed to going back to Arimidex. Pt reports some frequency and nocturia Q 2-3 hours. He believes this is in relation to his vitamin consumption. We did discuss potential for trialing a medication for OAB if he continues with symptoms, despite change in diet, lifestyle and vitamin consumption. I will plan for pt to return in 6 mos with PSA, HCT, TT Estr, or sooner with concerns. Jerri Coffman LPN am scribing for and in the presence of Javad Cordova MD. I, Javad Cordova MD, attest that I have personally performed the services scribed in this documentation and it is both accurate and complete. 11/02/2024 Hematuria (ICD-10 - R31.9) 07/20/2024 Long-term current use of testosterone cypionate (ICD-10 - Z79.890) Labs on 07/17/24 TT 867.9, Estr 76 Pt declines cystoscopy today. We discussed his rapid weight loss and potential for stone formation. Pt reports he has been taking various supplements and reports he has difficulty with hydration. Pt educated on importance of aggressive hydration. Pt is currently on TRT regimine, he is not taking arimidex. His Estr is WNL today. We did discuss potentially adding DIM as an estrogen britany as opposed to going back to Arimidex. Pt reports some frequency and nocturia Q 2-3 hours. He believes this is in relation to his vitamin consumption. We did discuss potential for trialing a medication for OAB if he continues with symptoms, despite change in diet, lifestyle and vitamin consumption. I will plan for pt to return in 6 mos with PSA, HCT, TT Estr, or sooner with concerns. IJerri LPN am scribing for and in the presence of Javad Cordova MD. I, Javad Cordova MD, attest that I have personally performed the services scribed in this documentation and it is both accurate and complete. 04/17/2025 Inflammation of bladder (ICD-10 - N30.90) He has been off testosterone for several months but would like to consider restarting. Symptomatically he has low libido and low energy with declining muscle mass and we have discussed treatment thresholds and targets. He would like to go back to injection therapy and will start a every 10 day half cc of 200 mg/cc concentration. 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 Side effects extensively reviewed and he will return in 3 months for check of safety labs. Denies bothersome LUTS. For now, and through shared decision making we are in agreement with no further workup or intervention at this time with care plan, aside from what was mentioned. Patient has no other voiced concerns or questions. Patient satisfied with plan. 01/16/2025 Nocturia (ICD-10 - R35.1) He has had over 100 pound weight loss and feels much better symptomatically and has been off testosterone for several months but would like to consider restarting it with a baseline testosterone below 300. Symptomatically he has low libido and low energy with declining muscle mass and we have discussed treatment thresholds and targets. He would like to go back to injection therapy and will start a every 10 day half cc of 200 mg/cc concentration. Side effects extensively reviewed and he will return in 3 months for check of safety labs including SHBG, hematocrit, testosterone, and estradiol. PSA has been stable on testosterone therapy. He denies any further urinary difficulties and has deferred follow-up cystoscopy. 01/16/2025 Long-term current use of testosterone cypionate (ICD-10 - Z79.890) He has had over 100 pound weight loss and feels much better symptomatically and has been off testosterone for several months but would like to consider restarting it with a baseline testosterone below 300. Symptomatically he has low libido and low energy with declining muscle mass and we have discussed treatment thresholds and targets. He would like to go back to injection therapy and will start a every 10 day half cc of 200 mg/cc concentration. Side effects extensively reviewed and he will return in 3 months for check of safety labs including SHBG, hematocrit, testosterone, and estradiol. PSA has been stable on testosterone therapy. He denies any further urinary difficulties and has deferred follow-up cystoscopy. 07/20/2024 Hypogonadism in male (ICD-10 - E29.1) Labs on 07/17/24 TT 867.9, Estr 76 Pt declines cystoscopy today. We discussed his rapid weight loss and potential for stone formation. Pt reports he has been taking various supplements and reports he has difficulty with hydration. Pt educated on importance of aggressive hydration. Pt is currently on TRT regimine, he is not taking arimidex. His Estr is WNL today. We did discuss potentially adding DIM as an estrogen britany as opposed to going back to Arimidex. Pt reports some frequency and nocturia Q 2-3 hours. He believes this is in relation to his vitamin consumption. We did discuss potential for trialing a medication for OAB if he continues with symptoms, despite change in diet, lifestyle and vitamin consumption. I will plan for pt to return in 6 mos with PSA, HCT, TT Estr, or sooner with concerns. IJerri LPN am scribing for and in the presence of Javad Cordova MD. I, Javad Cordova MD, attest that I have personally performed the services scribed in this documentation and it is both accurate and complete. 04/17/2025 Nocturia (ICD-10 - R35.1) He has been off testosterone for several months but would like to consider restarting. Symptomatically he has low libido and low energy with declining muscle mass and we have discussed treatment thresholds and targets. He would like to go back to injection therapy and will start a every 10 day half cc of 200 mg/cc concentration. 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 Side effects extensively reviewed and he will return in 3 months for check of safety labs. Denies bothersome LUTS. For now, and through shared decision making we are in agreement with no further workup or intervention at this time with care plan, aside from what was mentioned. Patient has no other voiced concerns or questions. Patient satisfied with plan. 04/17/2025 Long-term current use of testosterone cypionate (ICD-10 - Z79.890) He has been off testosterone for several months but would like to consider restarting. Symptomatically he has low libido and low energy with declining muscle mass and we have discussed treatment thresholds and targets. He would like to go back to injection therapy and will start a every 10 day half cc of 200 mg/cc concentration. 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 Side effects extensively reviewed and he will return in 3 months for check of safety labs. Denies bothersome LUTS. For now, and through shared decision making we are in agreement with no further workup or intervention at this time with care plan, aside from what was mentioned. Patient has no other voiced concerns or questions. Patient satisfied with plan. 01/16/2025 Other I, Ozzy Chandra, am scribing for, and in the presence of, Dr. Cordova. I, Dr. Javad Cordova, personally performed the services prescribed in this documentation , as scribed by Lilian Juan, in my presence, and it is both accurate and complete. He has had over 100 pound weight loss and feels much better symptomatically and has been off testosterone for several months but would like to consider restarting it with a baseline testosterone below 300. Symptomatically he has low libido and low energy with declining muscle mass and we have discussed treatment thresholds and targets. He would like to go back to injection therapy and will start a every 10 day half cc of 200 mg/cc concentration. Side effects extensively reviewed and he will return in 3 months for check of safety labs including SHBG, hematocrit, testosterone, and estradiol. PSA has been stable on testosterone therapy. He denies any further urinary difficulties and has deferred follow-up cystoscopy. Plan Of Treatment Pending Test Test Name Order Date Estradiol 01/26/2024 Hematocrit 01/26/2024 Sex Horm Binding Glob, Serum 01/26/2024 Testosterone, total 01/26/2024 Testosterone, total 11/02/2024 PSA, total (cpt 32310) 01/26/2024 HEMATOCRIT (509) 11/01/2023 HEMATOCRIT (509) 06/19/2024 HEMATOCRIT (509) 11/02/2024 ESTRADIOL (4021) 11/02/2024 ESTRADIOL (4021) 11/01/2023 TESTOSTERONE, TOTAL, MALES (ADULT), IA ( 873) 11/01/2023 PSA, TOTAL (5363) 11/02/2024 PSA, TOTAL (5363) 11/01/2023 SEX HORMONE BINDING GLOBULIN (05961) 08/2024 Voiding Trial 07/28/2023 [place] 84351 07/02/20 23 CBC w/ Auto Diff 04/17/2025 Estradiol Level 04/17/2025 Estradiol Level 03/07/2025 Estradiol Level 06/19/2024 Testosterone Total 06/19/2024 Testosterone Total 04/17/2025 Hematocrit 03/07/2025 Testosterone Bio & SHBG Adult Male 03/07 Next Appt Details Provider Name:Javad Tsai, 07/18/2025 01:00:00 PM, [address] [place], [address], Insurance Providers Payer Name Payer Address Payer Phone Subscriber Number Group Number Insured Name Patient Relationship to Insured Coverage Start Date Coverage End Date [place] [address] [place], [place] [phone] [id number] Jose Maynard Self - patient is the insured Medical (General) History Medical History History ICD Code hypertension back trouble hx of umbilical hernia hx of blood/plasma transfusion gross hematuria morbid obesity bladder cancer Surgical History Surgery Date(Month/Year) hip replacement bladder tear repair umbilical hernia repair TURBT 07/26/23 TURBT 08/26/23 Gastric Bypass 02/2024 Hospitalization History Reason Date(Month/Year) see sx hx
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
--- OUTSIDE RECORDS SUMMARY | 2025-06-12 17:32 | XMS_ITS | Patient Health Record ---
Author Organization [facility] Address [address], [place] [id number] Reason For Referral No Information Plan Of Treatment No Information
[2025-06-12 17:34] VITALS: BP 115/76; PULSE 75; RESP 14; TEMP 36.9; O2SAT 98
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
== END 2025-06-12 19:00 | disposition home or self-care (01) ==
PROVIDERS: Emergency Provider Physician Assistant; PCP Nurse Practitioner Family
DX: S02.2XXA Fracture of nasal bones, initial encounter for closed fracture (principal); S16.1XXA Strain of muscle, fascia and tendon at neck level, initial encounter; S13.4XXA Sprain of ligaments of cervical spine, initial encounter; V89.2XXA Person injured in unspecified motor-vehicle accident, traffic, initial encounter
CPT/HCPCS: 70450; 72125; 72128; 99284